=== PATIENT | male | born 1995 | race Caucasian/White ===

== ENCOUNTER 2019-09-29 09:55 | Emergency (ER) | payer OTHER, SELFPAY ==
--- NOTE | ~2019-09-29 | CT_ITS ---
EXAMINATION: CT abdomen pelvis wo con DATE: 09/29/2019 10:33 INDICATION: Right flank pain. TECHNIQUE: Computed tomography (CT) of the abdomen and pelvis was performed without intravenous contr ast. Automated exposure control and iterative reconstruction technique were employed. The dose-length product was 342.53 mGy-cm. COMPARISON: CT abdomen and pelvis 09/18/2016 FINDINGS: The visualized portions of the lung bases demonstrate minimal atelectasis. No pleural effus ion. The heart size is normal. No pericardial effusion. The liver, gallbladder, spleen, pancreas, adr enal glands, and right kidney are normal. There are 2 mm and 3 mm stones in left kidney. There is chr onic mild left hydronephrosis. There are no dilated loops of bowel. The appendix is normal. There are no pathologically enlarged lymph nodes. There is no free intraperitoneal fluid. There is mild lumbar spondylosis. IMPRESSION: 1. Small nonobstructing left kidney stones. 2. Chronic mild left hydronephrosis. Reviewed, dictated and finalized at location A.
[2019-09-29 10:16] VITALS: BP 145/83; PULSE 68; RESP 20; TEMP 36.8; O2SAT 99
[2019-09-29] MEDS: SODIUM CHLORIDE 0.9% IV 1,000 ML 999 ML IV CONT (10:40)
[2019-09-29 10:45] LABS: Add Urine Microscopic? NO; Appearance Urine Clear (Clear); Bilirubin Urine Negative (Negative); Blood Urine Negative (Negative); Color Urine Yellow (Yellow); Glucose Urine UA Negative (Negative); Ketones Urine Negative (Negative); Leukocyte Esterase Ur Negative (Negative); Nitrate Urine Negative (Negative); Protein Urine Negative (Negative)
--- NOTE | 2019-09-29 11:04 | ED.ABDPAIN ---
HPI - Abdominal Pain General Chief Complaint: Abdominal Pain Stated Complaint: Pain lower R Abd Source: patient Mode of arrival: ambulatory Limitations: no limitations History of Present Illness HPI narrative: This is a 23-year-old male that presents with right lower quadrant pain, has a history of kidney stones and this pain radiates into his right groin area, the patient is tender in the right lower quadrant area with palpation, patient states that he while working lifted heavy pipe and subsequently had pain and radiation into his right groin area patient currently rates his pain about a 3/10 not taken anything for pain this occurred approximately 1 week ago. Currently there is no fever or chills has some mild right flank pain with palpation and palpation in his right muscular abdomen that is tender with palpation no nausea vomiting no dysuria no hematuria. MD elicited complaint: abdominal pain and flank pain Pertinent past history: kidney stones Onset (ago): week(s) Pain Consistency: intermittent Location: RLQ and groin Severity: mild Pain scale (0-10): 3 Quality: aching Radiation: RLQ Migration to: no migration Exacerbating factors: nothing Relieving factors: rest Related Data Home Medications Medication Instructions Recorded Confirmed No Home Medications 09/29/19 09/29/19 Allergies Allergy/AdvReac Type Severity Reaction Status Date / Time No Known Allergies Allergy Verified 09/29/19 10:20 Review of Systems Review of Systems: All systems reviewed & are unremarkable except as noted in HPI and below PMFSH Past Medical History Medical History Nephrolithiasis Social History Social History Smoking packs per day: 1 Smoking cigarettes per day: 20.0 Smoking status: Current every day smoker Tobacco type: cigarettes Alcohol intake: current Drinks per week: 20 Alcohol use details: Pt. drinks daily Exam Const: General: no acute distress Orientation/consciousness: patient oriented x3 HENMT: Head: normal to inspection Eyes: Conjunctivae: conjunctivae normal Pupils: Equal, round and reactive pupils present Neck: Neck: normal visual inspection Chest: Chest palpation & inspection: normal inspection of the chest Resp: Effort & Inspection: normal respiratory effort Cardio: Rate: regular rate Rhythm: regular rhythm GI: GI Palp: Yes Soft to palpation Urinary Catheter: Urinary Catheter: patent and draining Skin: General skin exam: normal color Rashes: no rashes Neuro: General: patient oriented x3, moves all extremities, no meningeal signs and no focal motor deficits Extrem: General: normal to inspection Psych: Mental Status: mental status grossly normal Course Vital Signs Vital signs: Vital Signs Temperature 36.8 C 09/29/19 10:16 Pulse Rate 68 09/29/19 10:16 Respiratory Rate 09/29/19 10:16 Blood Pressure 145/83 H 09/29/19 10:16 Pulse Oximetry 99 09/29/19 10:16 Temperature 36.8 C 09/29/19 10:16 Pulse Rate 68 09/29/19 10:16 Respiratory Rate 09/29/19 10:16 Blood Pressure 145/83 H 09/29/19 10:16 Pulse Oximetry 99 09/29/19 10:16 MDM - Abdominal Pain Lab Data Labs: Lab Results 09/29/19 Range/Units 10:38 Urine Color Yellow (Yellow) Urine Appearance Clear (Clear) Urine pH 7.0 (5.0-8.0) Ur Specific Prosser 1.020 (1.010-1.020) Urine Protein Negative (Negative) Urine Glucose (UA) Negative (Negative) Urine Ketones Negative (Negative) Ur Blood (Man) Negative (Negative) Urine Nitrate Negative (Negative) Urine Bilirubin Negative (Negative) Urine Urobilinogen 1.0 (0.2-1.0) mg/dL Ur Leukocyte Esterase Negative (Negative) Imaging Data Radiologist's impression: ITS Impressions Abdomen/Pelvis CT 09/29/19 10:40 IMPRESSION: 1. Small nonobstructing left kidney stones. 2.
[2019-09-29 11:08] VITALS: BP 135/75; PULSE 80; RESP 18; TEMP 36.8; O2SAT 99
== END 2019-09-29 11:27 | disposition home or self-care (01) ==
PROVIDERS: Emergency Provider Emergency Medicine
DX: N20.0 Calculus of kidney (principal); S76.211A Strain of adductor muscle, fascia and tendon of right thigh, initial encounter; S39.011A Strain of muscle, fascia and tendon of abdomen, initial encounter; X50.0XXA Overexertion from strenuous movement or load, initial encounter
CPT/HCPCS: 74176; 81003; 99282; 99284; J7030

== ENCOUNTER 2019-10-15 19:58 | Emergency (ER) | payer SELFPAY ==
--- NOTE | ~2019-10-15 | CT_ITS ---
EXAMINATION: CT abdomen pelvis w con EXAM DATE: 10/15/2019 20:53 INDICATION: Right lower quadrant pain. TECHNIQUE: Spiral CT of the abdomen and pelvis was performed following intravenous injection of 100 m L Omnipaque 350. Axial, coronal and sagittal images were reviewed. The dose-length product (DLP) fo r this examination was 709.64 mGy-cm. The exposure was tailored according to patient size (auto mA e xposure control), and iterative reconstruction (ASIR) was used as additional dose reduction technique . Comparison is made to prior examination from 09/29/2019. FINDINGS: The liver, spleen, adrenal glands and pancreas are unremarkable. Gallbladder is unremarkab le. No biliary obstruction. Chronic mild left-sided caliectasis as previously seen, with a 4 mm non obstructing calyceal stone. The renal parenchyma appears to enhance symmetric to the contralateral si de. The prostate is unremarkable. The bladder is unremarkable. There is no retroperitoneal or pelv ic lymphadenopathy. The appendix is normal. The stomach and small bowel are unremarkable. There is moderate amount of c olonic stool. No free intraperitoneal gas. The heart is normal in size. There are no pericardial or pleural effusions. The bones are unremarkable. There are basilar mild mosaic attenuation. Appearance most suggestive of air trapping (small airways disease or asthma), and there is tiny amount of debris identified within some subsegmental bronchi. IMPRESSION: 1. No acute intra-abdominal findings. Normal appendix. 2. Chronic mild left hydronephrosis and nonobstructing left calyceal stone. 3. Basilar mosaic attenuation most likely air trapping/small airways disease. Reviewed, dictated and finalized at location A.
[2019-10-15 20:00] VITALS: BP 168/75; PULSE 73; RESP 16; TEMP 36.4; O2SAT 99
[2019-10-15 20:19] LABS: Basophils Percent Auto 0.6 % (0.2-1.2); Eosinophils Absolute Auto 0.4 K/mm3 (0-0.3); Hematocrit 56.3 % (42.0-52.0); Hemoglobin 19.1 g/dL (14.0-18.0); Immature Granulocyte Absolute 0.02 K/mm3 (0.00-0.031); Immature Granulocyte Percent A 0.3 % (0-0.5); Lymphocytes Absolute Auto 2.13 K/mm3 (0.9-3.2); Lymphocytes Percent Auto 30.5 % (18.3-44.2); Mean Corpuscular HGB Conc 33.9 g/dl (32-36); Mean Corpuscular Hemoglobin 31.1 pg (26-34); Mean Corpuscular Volume 91.7 fl (80-100); Mean Platelet Volume 10.1 fl (7.4-10.4); Monocytes Absolute Auto 0.7 K/mm3 (0.1-0.6); Monocytes Percent Auto 10.2 % (2.6-8.5); Neutrophils Absolute Auto 3.7 K/mm3 (1.3-6.7); Neutrophils Percent Auto 53.4 % (45.5-73.1); Platelet Count Result 237 k/mm3 (150-375); Red Blood Count 6.14 M/mm3 (4.6-6.20); Red Cell Distribution Width 12.6 % (11.5-14.5)
[2019-10-15 20:33] LABS: Alanine Aminotransferase 17 U/L (4-50); Albumin Level 5.1 g/dL (3.5-5.1); Alkaline Phosphatase 62 U/L (38-126); Aspartate Amino Transferase 23 U/L (17-59); Bilirubin,Total 0.5 mg/dL (0.2-1.3); Blood Urea Nitrogen 17 mg/dL (9-20); Calcium 9.8 mg/dL (8.4-10.2); Carbon Dioxide 28 mmol/L (22-30); Chloride 103 mmol/L (98-107); Estimated Glomerular Filt Rate > 60; Glucose 73 mg/dL (75-110); Lipase 51 U/L (23-300); Potassium 3.7 mmol/L (3.4-5.0); Sodium 141 mmol/L (137-145)
[2019-10-15 22:09] LABS: Add Urine Microscopic? YES; Appearance Urine Clear (Clear); Bilirubin Urine Negative (Negative); Blood Urine 2+ (Negative); Color Urine Straw (Yellow); Glucose Urine UA Negative (Negative); Ketones Urine Negative (Negative); Leukocyte Esterase Ur Negative LEU/UL (Negative); Nitrate Urine Negative (Negative); Protein Urine Negative (Negative); Squamous Epithelial Cell Urine Rare /hpf (Few); Urobilinogen Urine Negative mg/dL (<2.0); WBC Urine 0-3 /hpf
[2019-10-15 22:11] LABS: Specific Grav Ur 1.039 (1.001-1.035)
[2019-10-15 23:37] VITALS: BP 130/74; PULSE 90; RESP 16; O2SAT 98
== END 2019-10-15 23:54 | disposition left against medical advice (07) ==
PROVIDERS: Emergency Provider Emergency Medicine; PCP Family Medicine
DX: R10.9 Unspecified abdominal pain (principal)
CPT/HCPCS: 36415; 74177; 80053; 81001; 83690; 85025; 99199; J2270; J2405; Q9967

== ENCOUNTER 2020-07-28 19:50 | Emergency (ER) | payer SELFPAY ==
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
[2020-07-28] MEDS: HYDROcodone/acetaminophen (*CRX) 5-325 MG TABLET 1 TAB PO (20:11)
[2020-07-28 20:18] VITALS: BP 150/82; PULSE 78; RESP 20; TEMP 36.3; O2SAT 98
[2020-07-28] MEDS: KETOROLAC 10 MG TABLET PO (21:14)
[2020-07-28 21:25] VITALS: BP 139/75; PULSE 62; RESP 20; TEMP 36.7; O2SAT 97
== END 2020-07-28 21:30 | disposition home or self-care (01) ==
PROVIDERS: Emergency Provider Family Medicine
DX: S06.890A Other specified intracranial injury without loss of consciousness, initial encounter (principal); V86.59XA Driver of other special all-terrain or other off-road motor vehicle injured in nontraffic accident, initial encounter
CPT/HCPCS: 70450; 70486; 72125; 99282; 99284; A9270

== ENCOUNTER 2021-02-23 22:18 | Emergency (ER) | payer OTHER, SELFPAY ==
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
[2021-02-23 22:25] VITALS: BP 147/82; PULSE 66; RESP 20; TEMP 36.3; O2SAT 100
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
[2021-02-23 23:56] VITALS: BP 148/84; PULSE 68; RESP 20; TEMP 37.1; O2SAT 98
--- NOTE | 2021-02-23 23:58 | PC.NURSE ---
physician list given to pt. explained need to establish family doctor. pt voiced understanding
== END 2021-02-24 00:01 | disposition home or self-care (01) ==
PROVIDERS: Emergency Provider Emergency Medicine
DX: R51.9 Headache, unspecified (principal); R53.83 Other fatigue
CPT/HCPCS: 70450; 99282; 99284

== ENCOUNTER 2022-07-17 13:42 | Emergency (ER) | payer OTHER, SELFPAY ==
--- NOTE | ~2022-07-17 | XR_ITS ---
EXAM: XR knee LT min 4V DATE: 07/17/2022 14:00 HISTORY: fall X1WK AGO,LATERAL KNEE PAIN . COMPARISON: None available. FINDINGS: Normal mineralization. No fracture or dislocation. No lytic or blastic lesion. Joint space s are maintained. No erosion or periosteal change. Soft tissues within normal limits. Small volume le ft knee joint fluid collection. IMPRESSION: No acute osseous finding in the left knee. Small left knee joint effusion. Reviewed, dictated and finalized at location K. NESS INITIATIVES MANAGER IMPRESSION: No acute osseous finding in the left knee. Small left knee joint ef fusion.
[2022-07-17 13:44] VITALS: BP 163/88; PULSE 70; RESP 18; TEMP 36.5; O2SAT 99
--- NOTE | 2022-07-17 14:01 | ED.GENADULT ---
HPI - General Adult General Chief complaint: Extremity Injury, Lower Stated complaint: Left Knee Pain Time Seen by Provider: 07/17/22 13:58 History of Present Illness HPI narrative: The patient is an otherwise healthy 26-year-old male who twisted his left knee after falling on ice 4 days ago. He is able to ambulate. He has pain in the superior lateral aspect of the left knee. He took some Tylenol for pain. He went to work. His boss asked him to get his knee checked out before he can return to work. He has no pain elsewhere. No pain in the neck or back or elsewhere in the left lower extremity except at the knee laterally. Related Data Home Medications Medication Instructions Recorded Confirmed No Home Medications 02/23/21 02/23/21 Allergies Allergy/AdvReac Type Severity Reaction Status Date / Time No Known Allergies Allergy Verified 07/17/22 13:49 Review of Systems Review of Systems: All systems reviewed & are unremarkable except as noted in HPI and below Constitutional: Constitutional: Reports as per HPI, Reports no additional constitutional complaints, Denies chills, Denies excessive sweating, Denies fatigue, Denies fever(s), Denies headache(s) and Denies weakness Eyes: Eyes: Reports as per HPI, Reports no additional eye complaints, Denies change in vision and Denies photophobia ENT: Reports system reviewed and no additional complaints, except as documented, Reports as per HPI, Denies dysphagia, Denies vertigo, Denies dizziness, Denies headache(s), Denies lip swelling, Denies nasal congestion, Denies sore throat, Denies throat swelling and Denies tongue swelling Cardiovascular: Cardiovascular: Reports as per HPI, Reports no additional cardiovascular complaints, Denies chest pain, Denies syncope, Denies rapid heart rate and Denies dyspnea Respiratory: Respiratory: Reports as per HPI, Reports no additional respiratory complaints, Denies chest congestion, Denies cough, Denies dyspnea and Denies wheezing Gastrointestinal: Gastrointestinal: Reports as per HPI, Reports no additional gastrointestinal complaints, Denies abdominal pain, Denies constipation, Denies dysphagia, Denies diarrhea, Denies nausea and Denies vomiting Genitourinary: Genitourinary: Reports as per HPI, Denies hematuria, Denies oliguria, Denies dysuria, Denies urinary frequency, Denies urinary incontinence and Denies urinary urgency Musculoskeletal: Musculoskeletal: Reports no additional musculoskeletal complaints, Denies back pain, Denies myalgias, Reports arthralgias ( Left knee), Denies joint swelling and Denies numbness Integumentary/Breasts: Skin/Breast: Reports system reviewed and no additional complaints, except as docu, Denies pruritus, Denies erythema, Denies rash and Denies skin ulcer Neurologic: Reports system reviewed and no additional complaints, except as documented, Reports as per HPI, Denies confusion, Denies vertigo, Denies dizziness, Denies syncope, Denies headache(s), Denies focal weakness, Denies numbness and Denies weakness Psychiatric: Psychiatric: Reports as per HPI, Denies anxiety, Denies confusion, Denies depression, Denies homicidal ideation and Denies suicidal ideation Endocrine: Endocrine: Reports no additional endocrine complaints, Denies excessive sweating, Denies fatigue, Denies polydipsia and Denies polyuria Hematologic/Lymphatic: Hematologic/Lymphatic: Reports no additional hematologic/lymphatic complaints, Denies easy bleeding and Denies easy bruising Allergic/Immunologic: Allergic/Immunologic: Reports no additional allergic/immunologic complaints, Denies lip swelling, Denies throat swelling, Denies tongue swelling and Denies wheezing [facility] Past Medical History Medical History Nephrolithiasis Nicotine addiction Strain of muscle, fascia and tendon of abdomen, subsequent encounter Surgical History Surgical History Histor
== END 2022-07-17 14:20 | disposition home or self-care (01) ==
PROVIDERS: Emergency Provider Emergency Medicine
DX: S83.92XA Sprain of unspecified site of left knee, initial encounter (principal); F17.210 Nicotine dependence, cigarettes, uncomplicated; W00.0XXA Fall on same level due to ice and snow, initial encounter
CPT/HCPCS: 73564; 99283

== ENCOUNTER 2024-04-21 20:19 | Emergency (ER) | payer BC, SELFPAY ==
--- NOTE | ~2024-04-21 | XR_ITS ---
XR chest 2V Ordering provider: Hina Capellan MD History: 28 years Male with . sob . Comparison: None. FINDINGS: MEDIASTINUM: The cardiac silhouette is not enlarged. LUNGS: No effusions or pneumothorax. Opacification in the left lung base. OTHER: No free air under the diaphragm. IMPRESSION: Left basal pneumonia. Reviewed, dictated and finalized at location A. [employer] IMPRESSION: Left basal pneumonia.
[2024-04-21 20:21] VITALS: BP 156/94; PULSE 108; RESP 18; TEMP 36.9; O2SAT 96
--- NOTE | 2024-04-21 20:25 | ED.URI ---
HPI - URI/Sore Throat General Chief Complaint: Upper Respiratory Infection Stated Complaint: upper respiratory Source: patient Mode of arrival: ambulatory Limitations: no limitations History of Present Illness HPI Narrative: 28 YEARS OLD WHITE MALE CAME TO THE ED BY PRIVATE CAR COMPLAINING OF GENERAL BODY ACHES, CHILLS, FATIGUE, COUGHING, FEVER, FOR THE LAST 5 DAYS. Related Data Allergies Allergy/AdvReac Type Severity Reaction Status Date / Time No Known Allergies Allergy Verified 04/21/24 20:28 Review of Systems Review of Systems: All systems reviewed & are unremarkable except as noted in HPI and below PMFSH Past Medical History Medical History Nephrolithiasis Nicotine addiction Strain of muscle, fascia and tendon of abdomen, subsequent encounter Surgical History Surgical History History of kidney surgery Social History Social History Smoking packs per day: 1 Smoking cigarettes per day: 20.0 Smoking status: Current every day smoker Tobacco type: cigarettes Alcohol intake: current Drinks per week: 20 Alcohol use details: Pt. drinks daily Substance use: never Gender identity (if verbalized by the patient): Male Exam Narrative: GENERAL APPEARANCE: WELL-DEVELOPED, WELL-NOURISHED SKIN: NORMAL COLOR HEAD: NORMOCEPHALIC, NONTRAUMATIC EYES: CLEAR CONJUNCTIVA ENT: OROPHARYNX NORMAL, EARS NORMAL, NOSE NORMAL NECK: SUPPLE, NONTENDER CHEST AND RESPIRATORY: AIRWAY PATENT, NO RESPIRATORY DISTRESS, NO ACCESSORY MUSCLE USE FEW SCATTERED RHONCHI HEART: REGULAR RATE/RHYTHM ABDOMEN: SOFT, NONTENDER, NO ORGANOMEGALY, QUIET BOWEL SOUNDS VASCULAR: NORMAL PERIPHERAL PULSES, NORMAL CAPILLARY REFILL. 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, NO GROSS MOTOR DEFICIT Course Vital Signs Vital signs: Vital Signs Temperature 36.9 C 04/21/24 20:21 Pulse Rate 108 H 04/21/24 20:21 Respiratory Rate 18 04/21/24 20:21 Blood Pressure 156/94 H 04/21/24 20:21 Pulse Oximetry 96 04/21/24 20:21 Oxygen Delivery Room Air 04/21/24 20:21 Temperature 36.9 C 04/21/24 20:21 Pulse Rate 108 H 04/21/24 20:21 Respiratory Rate 18 04/21/24 20:21 Blood Pressure 156/94 H 04/21/24 20:21 Pulse Oximetry 96 04/21/24 20:21 Oxygen Delivery Room Air 04/21/24 20:36 MDM - URI/Sore Throat MDM Narrative Medical decision making narrative: PATIENT PRESENTS WITH UPPER RESPIRATORY VIRAL INFECTION SYMPTOMS VITAL SIGNS SHOWING BLOOD PRESSURE 156/94, HEART RATE 108, TEMPERATURE 36.9?, OXYGENATION ON ROOM AIR 96% PHYSICAL EXAMINATION SHOWING TIRED LOOKING PATIENT OTHERWISE INSIGNIFICANT DIFFERENTIAL DIAGNOSIS INCLUDE UPPER RESPIRATORY VIRAL INFECTION, PNEUMONIA CHEST X-RAY SHOWED LEFT BASAL PNEUMONIA PATIENT DOES NOT HAVE COMORBIDITIES, NO FEVER, OUTPATIENT MANAGEMENT IS APPROPRIATE AMOXICILLIN 1 G P.O. PRIOR TO DISCHARGE AMOXICILLIN 1 G T.I.D. FOR 7 DAYS PRESCRIBED PLUS ALBUTEROL INHALER. THE PT WAS DISCHARGED TO HOME.THE PT,S CONDITION UPON DISCHARGE WAS FAIR,EDUCATION WAS PROVIDED TO THE PT IN REFERENCE TO THE FINAL IMPRESSION,DISCHARGE STUDY RESULTS,TREATMENT,PROGNOSIS AND NEED FOR FOLLOW UP . Differential Diagnosis Differential diagnosis: Likely other ( ABOVE) Medical Records Attestation: I reviewed the patient's medical records. Lab Data Attestation: I reviewed the patient's lab results. Labs: Lab Results 04/21/24 Range/Units 20:33 Influenza A (RT-PCR) Pending Influenza B (RT-PCR) Pending RSV (RT-PCR) Pending SARS-CoV-2 RNA (RT-PCR) Pending Imaging Data Radiologist's impression: Impressions Chest X-Ray 04/21/24 21:44 IMPRESSION: Left basal pneumonia. Critical Care Time Critical Care Time Critical Care Time: No Discharge Plan Discharge Clinical Impression: Community acquired pneumonia Patient Disposition: Home, Self-Care Condition: Stable Instructions: Antibiotic Form, Community Acquired Pneumonia (ED) Additional Instructions: RETURN IF SYMPTOMS ARE WORSENING , CALL YOUR FAMILY PHYSICIAN FOR APPOINTMENT, TAKE TYLENOL, IBUPROFEN NEEDED FOR ACHES AND PAIN, CONTINUE HOME MEDICATIONS. Prescriptions: New amoxicillin 500 mg capsule 1,000 mg PO Q8H Qty: 21 0RF albuterol sulfate 90 mcg/actuation aerosol powdr breath activated 2 inh inhalation QID PRN (Reason: shortness of breath or wheezing) Qty: 1 0RF Follow-up/Referrals: Ramsey Dejesus MD [Physician] - 04/25/24 UNKNOWN,DOCTOR [Primary Care Provider] - Stand Alone Forms: Work/School Release IP
--- NOTE | 2024-04-21 20:31 | PC.NURSE ---
COVID PCR obtained and taken to lab
--- NOTE | 2024-04-21 20:35 | PC.NURSE ---
patient to imaging at this time via wheelchair per grade foreman.
[2024-04-21 21:18] LABS: Influenza A QL RT-PCR Negative (Negative); Influenza B QL RT-PCR Negative (Negative); RSV RNA, RT-PCR Negative (Negative); SARS-CoV-2 RNA PCR Negative (Negative)
--- NOTE | 2024-04-21 21:19 | PC.NURSE ---
patient checked, update provided. lights dimmed for comfort. patient reports h/a to RN at this time, states he took tylenol last at 1700. verbal orders for ibuprofen obtained from Dr. Capellan.
[2024-04-21] MEDS: IBUPROFEN 400 MG TABLET 800 MG PO (21:28)
[2024-04-21] MEDS: AMOXICILLIN 500 MG CAPSULE 1000 MG PO (22:15)
[2024-04-21 22:16] VITALS: TEMP 37.2
[2024-04-21 22:20] VITALS: BP 145/83; PULSE 79; RESP 18; TEMP 37.2; O2SAT 93
== END 2024-04-21 22:25 | disposition home or self-care (01) ==
PROVIDERS: Emergency Provider Emergency Medicine
DX: J18.9 Pneumonia, unspecified organism (principal); F17.210 Nicotine dependence, cigarettes, uncomplicated; Z20.822 Contact with and (suspected) exposure to COVID-19
CPT/HCPCS: 71046; 87637; 99283; A9270